=== PATIENT | female | born 1945 | race Caucasian/White ===

== ENCOUNTER → 2016-07-24 | Day surgery (SDC) | payer MEDICARE, OTHER ==
[~2016-07-24] VITALS: Ht 160 cm; Wt 62.2 kg
[~2016-07-24] MED LIST: *ENALAPRILAT 1.25 MG/ML VIAL PERIprocedural Use ONLY ONE; *MEPERIDINE 25 MG INJ VIAL PERIprocedural Use ONLY ONE; ACETAMINOPHEN/HYDROcodone 325 MG/5 MG TAB PO PRN; AMLO10 PO; BUPIVACAINE/EPINEPHRINE 0.5% PF 30 ML VIAL ONE; CINA30 PO; DO NOT ADM ANY ANTICOAGULANT DRUGS XX PRN; ENAL20TA81 PO; FAMOTIDINE 20 MG/2 ML VIAL ONE; FOLI5CAP PO; FURO1TAB60 PO; HEPARIN SODIUM - IV 10,000 UNITS/10 ML VIAL ONE; HEPARIN SODIUM - SQ 10,000 UNITS/ML VIAL ONE; HYDR50TA15 PO; Hemodialysis Vas Acc Cath PRN Heparin 1000 unit/ml Flush IVF; Hemodialysis Vas Access Cath PRN NS Lock Flush IVF; INSULIN HUMAN REGULAR 1,000 UNITS/10 ML VIAL SQ PRN; KETAMINE HCL 500 MG/5 ML VIAL ONE; LACTATED RINGER'S 1000 ML IV SCH; LORA-392 PO; MEGE40S PO; METOPROLOL TARTRATE 25 MG TAB PO PRN; MIDAZOLAM HCL 2 MG/2 ML VIAL ONE; PROPOFOL 200 MG/20 ML AMP IV ONE; PROT40TA PO; PROTAMINE SULFATE 50 MG/5 ML VIAL ONE; SENN8.6C PO; SODIUM CHLORID 0.9% 500 ML IV SCH; [UNRECOGNIZED DRUG - CODE] PO; [UNRECOGNIZED DRUG - CODE] SQ; ceFAZolin 1,000 MG/NS 100 ML IV SCH; hydrALAZINE HCL 20 MG/ML VIAL ONE
[2016-07-24 07:00] VITALS: BP 194/67; PULSE 68; RESP 16; TEMP 98.6; O2SAT 100
[2016-07-24 07:09] LABS: BASOPHIL # 0.1 TH/MM3 (0-0.2); BASOPHIL % 0.8 % (0.0-2.0); EOSINOPHIL # 0.1 TH/MM3 (0-0.4); EOSINOPHIL % 1.5 % (0.0-4.0); HEMATOCRIT 27.9 % (35.0-46.0); HEMO FLAGS DIFF FINAL; LYMPH % 22.5 % (9.0-44.0); LYMPHOCYTE # 1.8 TH/MM3 (1.0-4.8); MEAN CELL VOLUME 99.9 FL (80.0-100.0); MEAN CORPUSCULAR HEMOGLOBIN 32.8 PG (27.0-34.0); MEAN CORPUSCULAR HGB CONC 32.8 % (32.0-36.0); MONO % 12.1 % (0.0-8.0); NEUT % 63.1 % (16.0-70.0); PLATELET COUNT 201 TH/MM3 (150-450); WHITE BLOOD COUNT 7.9 TH/MM3 (4.0-11.0)
[2016-07-24 07:31] LABS: POTASSIUM 4.2 MEQ/L (3.5-5.1)
[2016-07-24 12:35] VITALS: BP 140/101; PULSE 84; RESP 20; TEMP 98; O2SAT 98
--- NOTE | 2016-07-25 14:55 | MP ---
cc: ARMAND ROSS M.D. DATE OF SURGERY: 07/24/2016. PREOPERATIVE DIAGNOSIS: Chronic kidney disease - needs permanent hemodialysis access. POSTOPERATIVE DIAGNOSIS: Chronic kidney disease - needs permanent hemodialysis access. OPERATIVE PROCEDURE PERFORMED: Left brachial-brachial AV graft creation. SURGEON: Armand Ross M.D. ALIGNMENT MECHANIC: SEMAJ Guthrie. ANESTHESIA: Local MAC. DESCRIPTION OF THE PROCEDURE IN DETAIL: With the patient in the supine position, IV sedation was induced, the left arm prepped with Betadine and draped in a sterile fashion, 1 gram of Ancef was administered intravenously, and following a protocol time-out, skin and subcutaneous tissue surrounding the two proposed incisional areas were preemptively infiltrated with 0.5% Marcaine with epinephrine. A vertical 3 cm incision was performed directly overlying the brachial vein several centimeters distal to the axilla. The incision was deepened through the fascia. The brachial vein was circumferentially mobilized and encircled with vessel loops. A curvilinear incision was performed directly overlying the brachial artery immediately proximal to the antecubital level through which the brachial artery was circumferentially mobilized and encircled with vessel loops. The vein was occluded proximally and distally with Yasargil clips, a vertical 2 cm venotomy performed, the vein flushed proximally with heparinized saline. A 6 mm center thorax PTFE graft was spatulated on-end and anastomosed end-to-side to the venotomy with continuous 6-0 Prolene. The graft was tunnelled subcutaneously in a crescent-shaped fashion along the medial aspect of the arm and brought out at the arterial exposure site. The brachial artery was occluded proximally and distally with Yasargil clips. The artery was diffusely, concentrically calcified and somewhat small in caliber, approximately 3.0 to 3.5 mm in diameter. A vertical arteriotomy was performed, approximately 4 mm in length along the anterolateral surface. The artery was flushed proximally and distally with heparinized saline. The graft was filled with heparinized saline, trimmed to appropriate length and anastomosed end-to-side to the arteriotomy with continuous 7-0 Prolene. The occluding Yasargil clips were then removed reestablishing pulsatile flow within the brachial artery as well as into the brachial vein. Doppler flow was robust and biphasic within the left radial artery and palmar arch but significantly augmented with digital compression of the PTFE graft suggesting moderate STEAL. Nonetheless, the biphasic Doppler flow within the palmar arch was quite adequate. Strict hemostasis was assured. Both incisions were secured with continuous 4-0 Monocryl subcutaneously and continuous subcuticular 5-0 Monocryl reinforced with Steri-Strips and covered with sterile gauze. Instrument, needle, sponge count correct x2. There were no operative complications. She returned to the recovery room in stable condition having tolerated procedure well. MD SUNNY Taylor/XI /9:10 PM /2:46 PM
== END | disposition home or self-care (01) ==
LOC: HSDC 06:01
PROVIDERS: ATTEND Surgery Vascular Surgery
DX: I12.0 Hypertensive chronic kidney disease with stage 5 chronic kidney disease or end stage renal disease (principal); N18.6 End stage renal disease; Z99.2 Dependence on renal dialysis
CPT/HCPCS: 01844; 36830; 80048; 85025; C1768; J0360; J0690; J1644; J2175; J2250; J3010; J7040; J2720